=== PATIENT | male | born 1950 | race Caucasian/White ===

== ENCOUNTER 2019-03-07 13:08 | Day surgery (SDC) | payer OTHER ==
[~2019-03-07] VITALS: Ht 182.9 cm; Wt 112.0 kg
[2019-03-07] MEDS ORDERED: ALBUTEROL0.63 MG/3 INH (13:50)
[2019-03-07] MEDS ORDERED: VENTOLIN HFA18 GM INH (13:50)
[2019-03-07] MEDS ORDERED: AMLODIPINE BESY10 MG PO (13:51)
[2019-03-07] MEDS ORDERED: ASPIRIN325 MG PO (13:52)
[2019-03-07] MEDS ORDERED: ASCORBIC ACID500 M3 PO (13:52)
[2019-03-07] MEDS ORDERED: SYMBICORT 80-10.2 GM INH (13:53)
[2019-03-07] MEDS ORDERED: CHLORTHALIDONE25 MG PO (13:54)
[2019-03-07] MEDS ORDERED: VITAMIN D31000 UNI1 PO (13:54)
[2019-03-07] MEDS ORDERED: CLONIDINE HCL0.1 MG PO (13:55)
--- NOTE | 2019-03-07 13:55 | NUR ---
PATIENTS BLOOD SUGAR WAS 89
[2019-03-07] MEDS ORDERED: GABAPENTIN300 MG PO (13:56)
[2019-03-07] MEDS ORDERED: CYMBALTA60 MG PO (13:56)
[2019-03-07] MEDS ORDERED: HYDROCODON-ACE1 EAC8 PO (13:57)
[2019-03-07] MEDS ORDERED: LUBRICANT EYE3.5 G2 OPTH (13:58)
[2019-03-07] MEDS ORDERED: LOSARTAN POTAS100 MG PO (13:58)
[2019-03-07] MEDS ORDERED: MELATONIN5 M2 PO (13:59)
[2019-03-07] MEDS ORDERED: METOPROLOL SUC200 MG PO (14:00)
[2019-03-07] MEDS ORDERED: NITROFURANTOIN100 M1 PO (14:00)
[2019-03-07] MEDS ORDERED: NITROSTAT0.4 MG SL (14:01)
[2019-03-07] MEDS ORDERED: PRAVASTATIN SOD80 MG PO (14:02)
[2019-03-07] MEDS ORDERED: PROBIOTIC1 EAC2 PO (14:08)
[2019-03-07] MEDS ORDERED: PRAZOSIN HCL5 MG PO (14:08)
[2019-03-07] MEDS ORDERED: REFRESH LIQUIGE15 ML OPTH (14:11)
[2019-03-07] MEDS ORDERED: ROPINIROLE HCL1 MG PO (14:11)
[2019-03-07] MEDS ORDERED: SERTRALINE HCL100 MG PO (14:12)
[2019-03-07] MEDS ORDERED: FLOMAX0.4 MG PO (14:12)
[2019-03-07] MEDS ORDERED: SPIRIVA18 MCG INH (14:13)
[2019-03-07] MEDS ORDERED: ZOLPIDEM TARTRAT5 MG PO (14:13)
--- NOTE | 2019-03-07 16:05 | NUR ---
03/07/19 1605 Nikole Medina 1547- PT ARRIVES TO PACU EASILY AROUSABLE. PT REPORTS NO PAIN OR NAUSEA. RESP EVEN AND UNLABORED. OXYGEN SAT LOW 90'S ON 2L VIA NC. 1553- PT TURNS HIMSELF TO HIS BACK AND SAT UP IN BED. PT DENIES ANY DIZZINESS, NAUSEA, OR PAIN. OXYGEN TITRATED OFF. 1557- PT EATING APPLE SAUCE PER REQUEST. TOLERATING WELL. 1559- DR. OVERTON AT THE BEDSIDE TO TALK WITH THE PT. PT'S OXYGEN SAT DROPPING TO 88% ON RA. PT IS ABLE TO INCREASE HIS OXYGEN SAT TO 94% ON RA WITH COUGHING AND DEEP BREATHING. PT REPORTS HE FEELS LIKE HE NEEDS TO USE HIS INHALER. PT'S HAS IT. 1601- PT'S AT THE BEDSIDE. 1602- PT USING INHALER WITH DR. OVERTON APPROVAL.
--- NOTE | 2019-03-08 15:50 | PATH ---
[facility] [address] [place], [place] [address] Signed SPECIMEN(S): A COLON BIOPSY AT 50 CM SPECIMEN SOURCE: A. COLON BIOPSY AT 50 CM CLINICAL HISTORY: No preop or clinical information is given on requisition. MICROSCOPIC DESCRIPTION: Histologic sections of all submitted blocks are examined by light microscopy. These findings, together with the gross examination, support the pathologic diagnosis. FINAL PATHOLOGIC DIAGNOSIS: Colon, polyp at 50 cm, polypectomy: - Tubular adenoma. - Negative for high-grade dysplasia or malignancy. NAL:cml:C2NR GROSS DESCRIPTION: The specimen, labeled "PC, colon biopsy at 50 cm," is received in formalin and consists of a 0.3 cm greatest dimension hebert-pink soft tissue fragment. The specimen is entirely submitted in cassette (A1). AR (under the direct supervision of a pathologist) The Gross Description was prepared using a voice recognition system. The report was reviewed for accuracy; however, sound-alike word errors, addition and/or deletions may occur. If there is any question about this report, please contact Client Services. PERFORMING LABORATORY: The technical component was performed by [facility], [address] [place] [id number] (Auto Rental Clerk: Cyndie Funes MD; CLIA# [id number]). [facility] [address] [address] (Auto Rental Clerk: Mau Edmonds MD; CLIA# [id number]). Diagnostician: Lamar Suazo MD Pathologist Electronically Signed 03/08/2019 PATIENT NAME: RAFFAELE HERNÁNDEZ PATHOLOGY DATE OF : 46 REPORT #: [id number] PHYSICIAN: CHELO VOSS PCP: GIOVANNY TRAYLOR MD REPORT IS CONFIDENTIAL AND NOT TO BE RELEASED WITHOUT AUTHORIZATION [address] [place], [place] [address] Signed Copies: ~ PATIENT NAME: RAFFAELE HERNÁNDEZ PATHOLOGY DATE OF : 46 REPORT #: [id number] PHYSICIAN: CHELO PATHOLOGY PCP: GIOVANNY TRAYLOR MD REPORT IS CONFIDENTIAL AND NOT TO BE RELEASED WITHOUT AUTHORIZATION
--- NOTE | 2019-03-08 20:01 | OR ---
[facility] [address] [place], [place] [address] Signed DATE OF OPERATION: 03/07/2019 SURGEON: Joie Overton MD PREOPERATIVE DIAGNOSES: 1. History of cecal polyp (adenoma) in 2008. 2. Family history of colitis. POSTOPERATIVE DIAGNOSIS: Small polyp at 50 cm (excised) incompletely retrieved. PROCEDURE PERFORMED: Total colonoscopy to cecum with cold snare polypectomy at 50 cm. ANESTHESIA: Intravenous sedation, fentanyl 100 mcg, Versed for 5 mg. INDICATION: This 68-year-old obese white man is a patient of Dr. Giovanny Ramirez at [facility]. He is familiar to me from the past having undergone [place] posterior gastropexy (anti-reflux procedure) in 1999. He is doing well from a reflux standpoint. The patient does have history of occlusive arterial disease of lower extremities as well as history of myocardial infarction and placement of coronary stents. He is symptom free as regard to colon. He is here for surveillance colonoscopy. Last colonoscopy in 2008 as described. The risks of bleeding, infection, and perforation were reviewed with him. He understands and wished to proceed. FINDINGS: The prep was good. Complete colonoscopy was undertaken to the cecum without question. He had one small linear shaped type polyp at 50 cm, which was excised with cold snare polypectomy technique. Incomplete retrieval of all the specimen was noted. However, additional specimens at the excision site were taken. DESCRIPTION OF PROCEDURE: The patient was brought to the endoscopy suite and placed in lateral decubitus position given intravenous sedation to a point of slurred speech and nystagmus. Digital rectal examination was normal. An Olympus video colonoscope was passed in the rectum and manipulated throughout the colon ultimately intubating the cecum. The ileocecal valve and appendiceal orifice were Electronically Signed By: JOIE OVERTON MD 03/08/192000 PATIENT NAME: RAFFAELE HERNÁNDEZ OPERATIVE REPORT DATE OF : 46 REPORT #: [id number] PHYSICIAN: JOIE OVERTON MD PCP: GIOVANNY RAMIREZ MD REPORT IS CONFIDENTIAL AND NOT TO BE RELEASED WITHOUT AUTHORIZATION [facility] [address] [place], [place] [address] Signed normal. I saw no evidence of recurrent or persistent polyp of the cecum. Scope was then withdrawn and examination undertaken carefully upon withdrawal of scope. Irrigation was undertaken as necessary. At approximately 50 cm from the anal verge, there was a small linear polyp, which had adenomatous features. This was excised with cold snare polypectomy technique completely. Specimen was not fully able to be grasped and withdrawn, although there was a trap on the suction device. It was never fully retrieved at that point. Additional biopsies were taken at the polypectomy site. In consideration, there may be residual base of polyp left. At conclusion, there was certainly no evidence of polyp remaining. Scope was further withdrawn and remaining colon was normal including retroflexed view of the rectum. The scope was removed and the patient was taken to recovery room in good condition. Examination of the trap for the endoscopy device showed no sign of polyps suctioned into it. CONCLUDING DIAGNOSIS: Small polyp at 50 cm, completely excised. PLAN: Recommend repeat colonoscopy in 5 years based on his prior history of polyp and his advancing age. Joie Overton MD JM/MODL /[id number] cc: Giovanny Ramirez MD Copies: GIOVANNY RAMIREZ MD ~ Electronically Signed By: JOIE OVERTON MD 03/08/19 2001 PATIENT NAME: RAFFAELE HERNÁNDEZ OPERATIVE REPORT DATE OF : 46 REPORT #: [id number] PHYSICIAN: JOIE OVERTON MD PCP: GIOVANNY RAMIREZ MD REPORT IS CONFIDENTIAL AND NOT TO BE RELEASED WITHOUT AUTHORIZATION
== END 2019-03-07 17:10 | disposition home or self-care (01) ==
LOC: DS 13:08
PROVIDERS: Surgery
PROC: 0DBE8ZZ Excision of Large Intestine, Via Natural or Artificial Opening Endoscopic (ICD-10-PCS; principal; 2019-03-07 14:00)
DX: Z12.11 Encounter for screening for malignant neoplasm of colon (principal); D12.6 Benign neoplasm of colon, unspecified; K21.9 Gastro-esophageal reflux disease without esophagitis; K44.9 Diaphragmatic hernia without obstruction or gangrene; F17.210 Nicotine dependence, cigarettes, uncomplicated; E11.9 Type 2 diabetes mellitus without complications; I10 Essential (primary) hypertension; E66.01 Morbid (severe) obesity due to excess calories; Z86.010 Personal history of colon polyps; Z87.19 Personal history of other diseases of the digestive system; Z88.5 Allergy status to narcotic agent; Z85.46 Personal history of malignant neoplasm of prostate; Z68.34 Body mass index [BMI] 34.0-34.9, adult
CPT/HCPCS: 99153; G0500; J0690; J2250; J3010; J7120